=== PATIENT | male | born 1980 | race Caucasian/White ===

== ENCOUNTER 2018-08-23 09:26 | Emergency (ER) | payer BC ==
--- NOTE | 2018-08-23 09:45 | ED ---
General Adult HPI - General Chief complaint: Urogenital Stated complaint: testicle pain Time Seen by Provider: 08/23/18 09:33 Source: patient, RN notes reviewed Mode of arrival: ambulatory Limitations: no limitations - History of Present Illness Initial comments: Patient 38-year-old male presenting to the emergency room today with chief complaint of left-sided testicular pain that began yesterday. Patient does admit that pain started approximately 7:30 AM. Patient states that the pain was worse this morning streaking. The emergency room to be checked. It is but pain started 7:30 yesterday morning when he was at work. He states that he's had no drainage or discharge. No dysuria or hematuria. Patient admits to pain to the left testicle. Does admit that he had some cramping in his abdomen this morning. Patient states she's never had similar symptoms in the past. Patient states is not worried about any STDs. Patient denies any recent fever, chills, shortness of breath, chest pain, back pain, nausea or vomiting, numbness or tingling, or any other complaints. - Related Data Previous Rx's Medication Instructions Recorded Ciprofloxacin HCl [Cipro] 500 mg PO Q12HR #20 day 08/23/18 Allergies Allergy/AdvReac Type Severity Reaction Status Date / Time No Known Allergies Allergy Verified 08/23/18 10:09 Review of Systems ROS Statement: Those systems with pertinent positive or pertinent negative responses have been documented in the HPI. ROS Other: All systems not noted in ROS Statement are negative. Past Medical History Past Medical History: No Reported History History of Any Multi-Drug Resistant Organisms: None Reported Past Surgical History: No Surgical Hx Reported Past Psychological History: No Psychological Hx Reported Smoking Status: Never smoker Past Alcohol Use History: Occasional Past Drug Use History: None Reported General Exam - General Exam Comments Initial Comments: General: The patient is awake and alert, in no distress, and does not appear acutely ill. Eye: Pupils are equal, round and reactive to light. Extra-ocular movements are intact. No nystagmus. There is normal conjunctiva bilaterally. No signs of icterus. Ears, nose, mouth and throat: There are moist mucous membranes and no oral lesions. Neck: The neck is supple, there is no tenderness or JVD. Cardiovascular: There is a regular rate and rhythm. No murmur, rub or gallop is appreciated. Respiratory: Lungs are clear to auscultation, respirations are non-labored, breath sounds are equal. No wheezes, stridor, rales, or rhonchi. Gastrointestinal: Abdomen soft on palpation. No tenderness, rebound tenderness , guarding or CVA tenderness. Musculoskeletal: Normal ROM, no tenderness. Sensation intact. Strength 5/5. Pulses equal bilaterally 2+. Neurological: A&O x 3. CN II-XII intact, There are no obvious motor or sensory deficits. Coordination appears grossly intact. Speech is normal. Skin: Skin is warm and dry and no rashes or lesions are noted. Psychiatric: Cooperative, appropriate mood & affect, normal judgment. : Circumcised male no drainage or discharge. Mild swelling of the left testicle on palpation. Mildly tender over the epididymis Limitations: no limitations Course Vital Signs 08/23/18 09:29 Temperature 98.1 F Pulse Rate 82 Respiratory 18 Rate Blood Pressure 135/75 O2 Sat by Pulse 100 Oximetry Medical Decision Making - Medical Decision Making Patient 38-year-old male presenting for left testicular pain. Ultrasound does show or tenderness. No sign for testicular torsion. Patient states is not worried about STDs. Patient does have cultures that are pending. Will be given dose of Rocephin and azithromycin here in the emergency room to cover and will be treated with ciprofloxacin for home. Patient is advised follow-up with urologist if symptoms persist return here if symptoms increase or worsen or for new concerns. - Lab Data Lab Results 08/23/18 Range/Units 11:03 Urine Color Yellow Urine Appearance Clear (Clear) Urine pH 5.5 (5.0-8.0) Ur Specific [place] 1.021 (1.001-1.035) Urine Protein Negative (Negative) Urine Glucose (UA) Negative (Negative) Urine Ketones Negative (Negative) Urine Blood Negative (Negative) Urine Nitrite Negative (Negative) Urine Bilirubin Negative (Negative) Urine Urobilinogen <2.0 (<2.0) mg/dL Ur Leukocyte Esterase Moderate H (Negative) Urine RBC 2 (0-5) /hpf Urine WBC 26 H (0-5) /hpf Urine Mucus Rare H (None) /hpf Disposition Clinical Impression: Orchitis Disposition: HOME SELF-CARE Condition: Good Instructions: Orchitis (ED) Additional Instructions: Please use medication as discussed. Please follow-up with urologist/family doctor in the next 2 days of symptoms have not improved. Please return to emergency room if the symptoms increase or worsen or for any other concerns. Prescriptions: Ciprofloxacin HCl [Cipro] 500 mg PO Q12HR #20 day Is patient prescribed a controlled substance at d/c from ED?: No Referrals: None,Stated [Primary Care Provider] - 1-2 days Cameron Sawyer MD [STAFF PHYSICIAN] - 1-2 days Time of Disposition: 11:41
[2018-08-23] MEDS ORDERED: HYDROcodone/APAP 5-325MG 1 EACH TAB PO STA (09:59)
--- NOTE | 2018-08-23 11:06 | US ---
EXAMINATION TYPE: US scrotum with doppler. Grayscale and color Doppler Duplex imaging performed of t he scrotum. DATE OF EXAM: 08/23/2018 COMPARISON: NONE CLINICAL HISTORY: Pain. Left testicular pain since Monday morning EXAM MEASUREMENTS: TESTICLES: Right Testicle: 4.0 x 3.8 x 2.3 cm Left Testicle: 4.6 x 4.2 x 2.7 cm EPIDIDYMIS HEAD: Right Epididymis: 0.9 x 1.0 x 0.6 cm Left Epididymis: 1.2 x 1.1 x 1.1 cm Doppler performed to assess for testicular vascularity; good bilateral color flow and waveforms are s een. There is no evidence of testicular torsion. Presence of hydroceles: small left Presence of varicoceles: Lateral to left teste. Valsalva performed. Left teste appears slightly heterogenous and appears hypervascular compared to right teste. IMPRESSION: 1. Left testicle appears to be slightly heterogeneous and increased in vascularity correlate for orch itis. 2. Small left hydrocele 3. Small left varicocele
[2018-08-23 11:17] LABS: Appearance,Urine Clear (Clear); Bilirubin,Urine Negative (Negative); Blood,Urine Negative (Negative); Color,Urine Yellow; Glucose,Urine (UA) Negative (Negative); Ketones,Urine Negative (Negative); Leukocyte Esterase,Urine Moderate (Negative); Mucus,Urine Rare /hpf; Nitrite,Urine Negative (Negative); PH, Urine 5.5 (5.0-8.0); Protein,Urine Negative (Negative); RBC,Urine 2 /hpf (0-5); Specific Gravity,Urine 1.021 (1.001-1.035); Urobilinogen,Urine <2.0 mg/dL (<2.0)
[2018-08-23] MEDS ORDERED: cefTRIAXone 250 MG VIAL IM STA (11:38)
[2018-08-23] MEDS ORDERED: AZITHROMYCIN 500 MG TAB PO STA (11:39)
[2018-08-23 12:06] VITALS: BP 138/70; PULSE 78; RESP 16; TEMP 97.8
[2018-08-24 13:59] LABS: C. trachomatis,PCR Negative (Neg,Equiv); Chlamydia trachomatis Source Urine; N. gonorrhoeae,PCR Negative (Neg,Equiv); Neisseria Source Urine
== END 2018-08-23 12:04 | disposition home or self-care (01) ==
LOC: EC 09:26
DX: N45.2 Orchitis (principal)
CPT/HCPCS: 76870; 81001; 87086; 87491; 87591; 93975; 96372; 99284

== ENCOUNTER 2019-11-02 13:19 | Emergency (ER) | payer BC ==
[2019-11-02 13:34] VITALS: BP 132/92; PULSE 71; RESP 18; TEMP 97.1
[2019-11-02] MEDS ORDERED: METOCLOPRAMIDE 5 MG/ML 2 ML VIAL IVP STA (13:44)
[2019-11-02] MEDS ORDERED: KETOROLAC 30 MG/ML 1 ML VIAL IVP STA (13:44)
[2019-11-02] MEDS ORDERED: diphenhydrAMINE 50 MG/ML 1 ML VIAL IVP STA (13:44)
--- NOTE | 2019-11-02 13:49 | ED ---
Headache HPI - General Chief Complaint: Headache Stated Complaint: headache Time Seen by Provider: 11/02/19 13:35 Mode of arrival: ambulatory Limitations: no limitations - History of Present Illness Initial Comments: Patient is a 39-year-old male presenting to emergency Department with complaints of a right-sided headache. Patient states 2 days ago he slipped on the couch and woke up with a stiff neck. Patient states that stiffness migrated into a headache on the right side. Patient states he has had some headaches in the past however he feels like this has been increasing. He has not tried any Tylenol or Motrin. Patient denies any neck pain at this time however does admit to some mild right-sided tightness. Patient admits to mild cold-like symptoms the last few days. He denies fever, chills, nausea, vomiting, abdominal pain. He denies body aches. He does admit to mild photophobia. He denies any injuries or trauma. He has no other pertinent past medical history and takes no medications. He has no other complaints today. Upon arrival to the ER, his vital signs are stable. - Related Data Previous Rx's Medication Instructions Recorded Ciprofloxacin HCl [Cipro] 500 mg PO Q12HR #20 day 08/23/18 Allergies Allergy/AdvReac Type Severity Reaction Status Date / Time No Known Allergies Allergy Verified 11/02/19 13:34 Review of Systems ROS Statement: Those systems with pertinent positive or pertinent negative responses have been documented in the HPI. ROS Other: All systems not noted in ROS Statement are negative. Past Medical History Past Medical History: No Reported History History of Any Multi-Drug Resistant Organisms: None Reported Past Surgical History: No Surgical Hx Reported Past Psychological History: No Psychological Hx Reported Smoking Status: Never smoker Past Alcohol Use History: Occasional Past Drug Use History: None Reported General Exam - General Exam Comments Initial Comments: GENERAL: Well-appearing, well-nourished and in no acute distress. HEAD: Atraumatic, normocephalic. EYES: Pupils equal round and reactive to light, extraocular movements intact, sclera anicteric, conjunctiva are normal. Photophobia. ENT: TMs normal, nares patent, oropharynx clear without exudates. Moist mucous membranes. NECK: Slightly decreased motion with right cervical rotation secondary to stiffness. No pain with palpation. supple without lymphadenopathy or JVD. LUNGS: Breath sounds clear to auscultation bilaterally and equal. No wheezes rales or rhonchi. HEART: Regular rate and rhythm without murmurs, rubs or gallops. ABDOMEN: Soft, nontender, normoactive bowel sounds. No guarding, no rebound. No masses appreciated. : Deferred EXTREMITIES: Normal range of motion, no pitting or edema. No clubbing or cyanosis. Strength is 5 of 5 in upper and lower extremities. Sensation is equal in bilateral lower and upper extremities. NEUROLOGICAL: Cranial nerves II through XII grossly intact. Normal speech, normal gait. PSYCH: Normal mood, normal affect. SKIN: Warm, Dry, normal turgor, no rashes or lesions noted. Limitations: no limitations Course Vital Signs 11/02/19 13:30 Temperature 97.1 F L Pulse Rate 71 Respiratory 18 Rate Blood Pressure 132/92 O2 Sat by Pulse 96 Oximetry Medical Decision Making - Medical Decision Making Patient is a 39-year-old male presenting with headache 2 days. Vital signs are stable. Exam is unremarkable, no red flag symptoms. Patient was given Toradol, Benadryl, Reglan. Patient reports improvement of symptoms. Patient is stable for discharge at this time. Discussed with patient to try Excedrin for migraines if symptoms return or if he gets another headache. Patient is agreement with this plan of care. Return parameters were discussed with the patient he verbalizes understanding. Case discussed with Dr. Rodriguez. Disposition Clinical Impression: Headache Disposition: HOME SELF-CARE Condition: Stable Instructions (If sedation given, give patient instructions): Acute Headache (ED) Additional Instructions: Please return to the Emergency Department if symptoms worsen or any other concerns. Trial of Excedrin for migraine if symptoms return. Is patient prescribed a controlled substance at d/c from ED?: No Referrals: None,Stated [Primary Care Provider] - 1-2 days
[2019-11-02] MEDS ORDERED: SODIUM CHLORIDE 0.9% 1,000 ML IV STA (14:15)
== END 2019-11-02 16:16 | disposition home or self-care (01) ==
LOC: EC 13:19
DX: R51 Headache (principal); H53.149 Visual discomfort, unspecified
CPT/HCPCS: 99283; 96374; 96375 ×2; 96361; J1200; J2765; J1885

== ENCOUNTER 2019-11-05 14:57 | Emergency (ER) | payer BC ==
[2019-11-05 15:05] VITALS: RESP 18
[2019-11-05] MEDS ORDERED: KETOROLAC 30 MG/ML 1 ML VIAL IVP STA (15:38)
[2019-11-05] MEDS ORDERED: diphenhydrAMINE 50 MG/ML 1 ML VIAL IVP STA (15:38)
[2019-11-05] MEDS ORDERED: METOCLOPRAMIDE 5 MG/ML 2 ML VIAL IVP STA (15:38)
--- NOTE | 2019-11-05 16:03 | CT ---
EXAMINATION TYPE: CT brain wo con DATE OF EXAM: 11/05/2019 COMPARISON: None HISTORY: Headache without injury for [address] DLP: 1113.4 mGycm. Automated Exposure Control for Dose Reduction was Utilized. TECHNIQUE: CT scan of the head is performed without contrast. FINDINGS: There is no acute intracranial hemorrhage, mass effect, or midline shift identified. The ventricles and sulci are within normal limits in size. The globes are intact and the visualized sin uses are clear. IMPRESSION: No acute intracranial hemorrhage, mass effect, or midline shift is seen. If symptoms per sist correlate with MRI.
--- NOTE | 2019-11-05 16:04 | ED ---
Headache HPI - General Chief Complaint: Headache Stated Complaint: head pain Time Seen by Provider: 11/05/19 15:12 Mode of arrival: ambulatory Limitations: no limitations - History of Present Illness Initial Comments: Patient is a 39-year-old male presenting to emergency Department with a chief complaint of a headache. Patient states that he developed a right-sided headache about 5 days ago. Patient reports he woke up with a somewhat of a stiff neck and pain on the right side of his head. Patient reports he was in the ED about 2 days after the onset of the headache and was treated symptomatically. Patient states that lasted for several hours until the pain returned. Patient reports the only thing that has changed from then is now that he has developed some photosensitivity in the right eye only and nausea but no vomiting. Patient denies any visual disturbances, chest pain, shortness of breath. Patient states that his headache is now somewhat in the ear but denies any hearing loss. He has no history of migraines or family history of it. He reports taking [id number] analgesics with minimal improvement. - Related Data Previous Rx's Medication Instructions Recorded Ciprofloxacin HCl [Cipro] 500 mg PO Q12HR #20 day 08/23/18 Allergies Allergy/AdvReac Type Severity Reaction Status Date / Time No Known Allergies Allergy Verified 11/05/19 15:05 Review of Systems ROS Statement: Those systems with pertinent positive or pertinent negative responses have been documented in the HPI. ROS Other: All systems not noted in ROS Statement are negative. Past Medical History Past Medical History: No Reported History History of Any Multi-Drug Resistant Organisms: None Reported Past Surgical History: No Surgical Hx Reported Past Psychological History: No Psychological Hx Reported Smoking Status: Never smoker Past Alcohol Use History: Occasional Past Drug Use History: None Reported General Exam Limitations: no limitations General appearance: alert, in no apparent distress Head exam: Present: atraumatic, normocephalic, normal inspection Eye exam: Present: normal appearance, PERRL, EOMI. Absent: scleral icterus, conjunctival injection Pupils: Present: normal accommodation ENT exam: Present: normal exam, mucous membranes moist Neck exam: Present: normal inspection, tenderness (Focal tenderness at the attachment point of the right SCM to the occiput. Pain worse with left rotation.), full ROM. Absent: meningismus, other (Negative Brudzinski) Respiratory exam: Present: normal lung sounds bilaterally Cardiovascular Exam: Present: regular rate, normal rhythm, normal heart sounds Extremities exam: Present: normal inspection, full ROM, normal capillary refill Back exam: Present: normal inspection, full ROM Neurological exam: Present: alert, oriented X3, CN II-XII intact, normal gait Psychiatric exam: Present: normal affect, normal mood Skin exam: Present: warm, dry, intact, normal color Course Vital Signs 11/05/19 11/05/19 15:02 17:31 Temperature 98.0 F 98.2 F Pulse Rate 77 75 Respiratory 18 18 Rate Blood Pressure 134/89 112/76 O2 Sat by Pulse 99 98 Oximetry Medical Decision Making - Medical Decision Making Patient is a 39-year-old male presenting to emergency Department with a chief complaint of a headache. On exam patient does have some right-sided tenderness at the neck near the attachment point of the SCM muscle to the occiput. Patient exacerbated with left rotation. No signs of meningitis. No fevers or chills. Headache appears to be a migraine with some photosensitivity but only in the right eye. Some nausea but no vomiting. Mild low suspicion for a tension headache or a cluster headache. This is not a thunderclap headache. Patient was given Benadryl, Reglan and Toradol. Reevaluation patient reports the pain is a 2. CT of brain is unremarkable. MRI recommended to patient. Patient advised to follow-up with a neurologist. Strict return parameters were thoroughly discussed with patient was understanding and agreeable. Case discussed with physician. Disposition Clinical Impression: Headache Disposition: HOME SELF-CARE Condition: Stable Instructions (If sedation given, give patient instructions): Acute Headache (ED) Additional Instructions: Alternate between Tylenol and Motrin for pain control. Please obtain a family care doctor. Follow-up with neurology afterwards. In the emergency department if symptoms worsen. Is patient prescribed a controlled substance at d/c from ED?: No Referrals: None,Stated [Primary Care Provider] - 1-2 days Time of Disposition: 17:02
[2019-11-05 17:33] VITALS: BP 112/76; PULSE 75; TEMP 98.2
== END 2019-11-05 17:32 | disposition home or self-care (01) ==
LOC: EC 14:57
DX: R51 Headache (principal); R11.0 Nausea; H53.141 Visual discomfort, right eye
CPT/HCPCS: 70450; 99284; 96374; 96375 ×2; J1200; J2765; J1885

== ENCOUNTER → 2022-07-01 | Outpatient (CLI) | payer BC ==
[2022-07-01 14:42] VITALS: BP 117/78; PULSE 77; RESP 18; TEMP 98
--- NOTE | 2022-07-01 15:01 | P.GSHP ---
History of Present Illness H&P Date: 07/01/22 Chief Complaint: Mass right breast Unruly is a 42-year-old male who presents with a complaint of a mass in the right breast. He is seen in consultation for Dr. Hernandez. He underwent an ultrasound of the breast on . This revealed a 2.3 cm lesion at 9:00 as well as smaller masses in the right breast. 2 additional lesions are at 2:00 measuring 1.3 x 0.8 cm and at 7:00 measuring 5 x 4 mm. A lipoma [place] suspected[place] [id number] [place]. The patient noted the lump in his right breast for about 4 months. It is not tender. It may have increased in size. He has not had a biopsy of the area. He has not had any surgery on his breast. Not had any recent trauma or infection of the breast. It is not complaining of any testicular lumps or masses. 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 They were on his right arm, left leg, and right side. 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 - Constitutional Constitutional: Denies chills, Denies fever - EENT Eyes: denies blurred vision, denies pain Ears: deny: decreased hearing, tinnitus Ears, nose, mouth and throat: Denies headache, Denies sore throat - Breasts Breasts: bilateral: as per HPI - Cardiovascular Cardiovascular: Denies chest pain, Denies shortness of breath - Respiratory Respiratory: Denies cough, Denies 7 - Gastrointestinal Gastrointestinal: Denies abdominal pain, Denies diarrhea, Denies nausea, Denies vomiting - Genitourinary (Male) Genitourinary: Denies dysuria, Denies hematuria - Musculoskeletal Musculoskeletal: Denies myalgias - Integumentary Integumentary: Reports as per HPI - Neurological Neurological: Denies numbness, Denies weakness - Psychiatric Psychiatric: Denies anxiety, Denies depression - Endocrine Endocrine: Denies fatigue, Denies weight change - Hematologic/Lymphatic Comment: none - Allergic/Immunologic Allergic/Immunologic: Reports as per HPI Past Medical History Past Medical History: No Reported History History of Any Multi-Drug Resistant Organisms: None Reported Past Surgical History: No Surgical Hx Reported Past Psychological History: No Psychological Hx Reported Past Alcohol Use History: Occasional Past Drug Use History: None Reported Medications and Allergies Home Medications Medication Instructions Recorded Confirmed Type Ubidecarenone [Co Q-10] 400 mg PO DAILY 07/01/22 07/01/22 History Allergies Allergy/AdvReac Type Severity Reaction Status Date / Time No Known Allergies Allergy Verified 07/01/22 14:36 Surgical - Exam BMI: 32.3 - General no distress - Eyes normal ocular movement - Neck trachea midline - Respiratory normal respiratory effort, clear to auscultation - Cardiovascular Rhythm: regular Heart Sounds: normal: S1, S2 - Abdomen Abdomen: soft, non tender, no guarding, no rigid, no rebound - Musculoskeletal normal gait - Psychiatric oriented to time, oriented to person, oriented to place, speech is normal, memory intact Breast examination: Inspection: Approximately 7:00 area there is some protuberance at approximately 4 cm from the nipple on the right, no lesions noted on the left Palpation: Right breast: Multi-positional examination of the breasts reveals approximately a 1 cm area of nodularity at the 1 o'clock position, the other 2 areas seen and ultrasound are not as clearly palpable Right axilla: No adenopathy of concern Left breast: Multi-positional exam fibrocystic changes no discrete dominant masses or nodules of concern Left axilla: No adenopathy of concern Testicular exam: Patient declined Patient does have a approximately a 3 cm lesion on the right anterior flank which is consistent with a lipoma as well. Results Ultrasound results reviewed of the right breast Assessment and Plan Assessment: Impression: Abnormal right breast ultrasound History of lipomas Palpable nodule right breast approximately 7:00 Plan: Ultrasound-guided core biopsy of dominant 2.3 cm mass at the 9 o'clock position Patient to follow up after ultrasound core biopsy Patient will consider whether he would like to have the lesions removed if these are lipomas CC: Dr. Hernandez
== END | disposition home or self-care (01) ==
LOC: WWCWWP 14:31
PROVIDERS: ATTEND Surgery
DX: Z53.9 Procedure and treatment not carried out, unspecified reason (principal)

== ENCOUNTER → 2022-07-15 | Day surgery (SDC) | payer BC ==
--- NOTE | 2022-07-19 11:43 | USB ---
Pathology Description: Location: 9 o'clock. Marker Left Behind. Needle Type: Celero Cores: 3 Skin Nicks: 1 Gauge: 12 The procedure of ultrasound guided core biopsy was explained to the patient. Benefits, alternatives, and risks were discussed. An informed consent was then obtained. The patient was placed in supine positioning for imaging and for the procedure. The overlying skin was prepped and draped in usual sterile fashion. Lidocaine buffered with bicarbonate was used as anesthetic into the skin and subcutaneous tissue up to area of concern in the right 9:00 breast. Under ultrasound guidance, a 12-gauge vacuum assisted biopsy gun device was used to obtain 3 core samples. Following this, a biopsy clip was left in lesion. The patient tolerated the procedure well without any immediate complication. The patient was kept in the radiology department for short stay after the procedure and then discharged home in stable condition. Postprocedure mammogram: The patient was transferred to mammography for physician ordered post procedure mammogram for clip placement verification. Impression: Successful, uncomplicated ultrasound guided core biopsy of area of concern in the right 9:00 breast, full pathology results to follow. Pathology Results: Result: Benign, Angiolipoma. RIGHT BREAST, NINE O'CLOCK, ULTRASOUND GUIDED NEEDLE CORE BIOPSY: Angiolipoma. Overall Assessment: Benign Management: Diagnostic Breast Ultrasound of the right breast in 6 months. Electronically signed and approved by: Partha Lee M.D. Radiologis
== END ==
LOC: RADUSWWP 10:29
PROVIDERS: ATTEND Surgery
DX: D17.79 Benign lipomatous neoplasm of other sites (principal)
CPT/HCPCS: 88305; 19083; A4648

== ENCOUNTER → 2022-07-29 | Outpatient (CLI) | payer BC ==
[2022-07-29 08:52] VITALS: BP 149/83; PULSE 65; RESP 17; TEMP 98.9
--- NOTE | 2022-07-29 09:24 | P.PN ---
Subjective Progress Note Date: 07/29/22 Principal diagnosis: Angiolipoma right breast Unruly is a 42-year-old male who presents with a complaint of a mass in the right breast. He is seen in consultation for Dr. Hernandez. He underwent an ultrasound of the breast on . This revealed a 2.3 cm lesion at 9:00 as well as smaller masses in the right breast. 2 additional lesions are at 2:00 measuring 1.3 x 0.8 cm and at 7:00 measuring 5 x 4 mm. A lipoma was suspected. [place] [id number] reviewed. The patient noted the lump in his right breast for about 4 months. It is not tender. It may have increased in size. He has not had a biopsy of the area. He has not had any surgery on his breast. Not had any recent trauma or infection of the breast. It is not complaining of any testicular lumps or masses. 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 They were on his right arm, left leg, and right side. 07-29-[place] [id number] underwent an ultrasound-guided core biopsy of lesion in the right breast at 9:00 this was positive for an angiolipoma. The patient has a lesion in the right breast at 1:00 which is palpable felt to be consistent with the same as well as a right anterior flank lesion which is also palpable and approximately 2.3 cm in size. The patient tolerated the biopsy without difficulty. 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 - Constitutional Constitutional: Denies chills, Denies fever - EENT Eyes: denies blurred vision, denies pain Ears: deny: decreased hearing, tinnitus Ears, nose, mouth and throat: Denies headache, Denies sore throat - Breasts Breasts: bilateral: as per HPI - Cardiovascular Cardiovascular: Denies chest pain, Denies shortness of breath - Respiratory Respiratory: Denies cough - Gastrointestinal Gastrointestinal: Denies abdominal pain, Denies diarrhea, Denies nausea, Denies vomiting - Genitourinary (Male) Genitourinary: Denies dysuria, Denies hematuria - Musculoskeletal Musculoskeletal: Denies myalgias - Integumentary Integumentary: Reports as per HPI - Neurological Neurological: Denies numbness, Denies weakness - Psychiatric Psychiatric: Denies anxiety, Denies depression - Endocrine Endocrine: Denies fatigue, Denies weight change - Hematologic/Lymphatic Comment: none - Allergic/Immunologic Allergic/Immunologic: Reports as per HPI Past Medical History Past Medical History: No Reported History History of Any Multi-Drug Resistant Organisms: None Reported Past Surgical History: No Surgical Hx Reported Past Psychological History: No Psychological Hx Reported Past Alcohol Use History: Occasional Past Drug Use History: None Reported Medications and Allergies Home Medications Medication Instructions Recorded Confirmed Type Ubidecarenone [Co Q-10] 400 mg PO DAILY 07/01/22 07/01/22 History Allergies Allergy/AdvReac Type Severity Reaction Status Date / Time No Known Allergies Allergy Verified 07/01/22 14:36 Objective - Vital Signs Vital signs: Vital Signs Temp 98.9 F 07/29/22 08:47 Pulse 65 07/29/22 08:47 Resp 17 07/29/22 08:47 BP 149/83 07/29/22 08:47 Pulse Ox 98 07/29/22 08:47 FiO2 Intake & Output 07/28/22 07/29/22 07/29/22 18:59 06:59 18:59 Weight 111.13 kg - Constitutional General appearance: Present: cooperative - EENT Eyes: Present: EOMI ENT: Present: hearing grossly normal - Neck Neck: Present: normal ROM - Respiratory Respiratory: bilateral: CTA - Cardiovascular Heart sounds: normal: S1, S2 - Integumentary Integumentary: Present: normal turgor - Musculoskeletal Musculoskeletal: Present: gait normal - Psychiatric Psychiatric: Present: A&O x's 3, appropriate affect, intact judgment & insight - Additional findings Additional findings: Breast examination: Palpation: Right breast: Multi-positional exam persistent lesion approximately 1:00 appears to be consistent with a lipoma, lesion 9:00 which was biopsied and positive for an angiolipoma, otherwise no dominant masses or nodules of concern Right axilla: No adenopathy of concern Left breast: Multi-positional exam fibroglandular changes no dominant masses or nodules of concern Left axilla: No adenopathy of concern Examination on the right flank reveals approximately 2.3 cm lesion consistent with a fibrolipoma Assessment and Plan Assessment: impression: Palpable mass right breast 9:00 consistent with angiolipoma, additional lesion at 1 to 2:00 1.3 cm and a 7:00 nonpalpable 5 x 4 mm lesion Palpable mass right anterior flank Plan: Resection of palpable masses right breast 9:00 in 1 to 2:00 area Resection of palpable mass right anterior flank We will follow clinically the 5 x 4 mm lesion in the right breast seen on ultrasound Risk and benefits of the procedure discussed with the patient. Risks include but are not limited to bleeding, infection, reaction to the anesthetic. The patient understands and wishes to proceed. CC: Dr. Hernandez
== END ==
LOC: WWCWWP 08:38
PROVIDERS: ATTEND Surgery
DX: R92.8 Other abnormal and inconclusive findings on diagnostic imaging of breast (principal); E66.9 Obesity, unspecified; Z68.32 Body mass index [BMI] 32.0-32.9, adult